=== PATIENT | male | born 1950 | race Caucasian/White ===

== ENCOUNTER 2018-11-17 14:42 | Emergency (ER) | payer MEDICARE, BC ==
[~2018-11-17] VITALS: Ht 177.8 cm; Wt 89.4 kg
--- NOTE | 2018-11-17 16:02 | NUR ---
PT WAS D/C'd TO HOME. D/C INSTRUCTIONS GIVEN TO THE PT. PT DENIES PAIN. NO BLEEDING AT THIS TIME.
[2018-11-17 16:03] VITALS: BP 136/82
== END 2018-11-17 16:04 | disposition home or self-care (01) ==
LOC: ER 14:42
DX: I74.8 Embolism and thrombosis of other arteries (principal); H92.02 Otalgia, left ear; I25.2 Old myocardial infarction; E11.9 Type 2 diabetes mellitus without complications; F17.200 Nicotine dependence, unspecified, uncomplicated; Z86.73 Personal history of transient ischemic attack (TIA), and cerebral infarction without residual deficits
CPT/HCPCS: A4663